=== PATIENT | female | born 1995 | race Caucasian/White ===

== ENCOUNTER 2021-10-22 00:08 | Day surgery (SDC) | payer OTHER, SELFPAY ==
[2021-10-16 11:35] VITALS: BMI 24.7
--- NOTE | 2021-10-16 11:41 | PC.NURSE ---
Report to the Outpatient Waiting Room, entrance under the green pavilion located off [facility], at time 0600 on date 10/22/21. OR Time: 0730. - You and your visitor will be asked a series of questions to screen for COVID 19 for your protection. - Only one visitor is allowed at this time. - The patient visitor is requested to leave or wait in car when not with patient. - A mask is required within the hospital. Patients may have clear liquids (water, carbonated beverages, clear teas, apple juice) until 3 hours prior to surgery with a maximum of 20 ounces. - No food from midnight until time of surgery Take the following medications with a SIP of water the morning of surgery: NONE Medications to discontinue per physician: VITAMINS Date to take last dose: 10/18/21 Please no make-up, nail czech, hairspray, perfume, deodorant, or body powder the day of surgery. No jewelry (including any body piercings) or valuables the day of surgery, leave them at home. Please take a shower or bath the night before, or the morning of, surgery with an antibacterial soap. Wear comfortable, loose fitting clothing. - Jewelry must be removed prior to entering the operating room. Rings and piercings that are not removed may be cut off. - The hospital will not accept responsibility for valuables. - Please leave all valuables, including medications, at home the day of surgery. If you are going home after surgery, a licensed school bus driver/mechanic must drive you home. - NO public transportation without another adult. - We recommend that an adult stay with you for 24 hours following discharge. - We also recommend that you do not drive, make important decision, drink alcoholic beverages, or take any drugs that were not prescribed by your health care provider for at least 24 hours after your discharge time. Follow any additional instructions given to you from your surgeon. If you or anyone in your household have experienced Covid symptoms in the past week, please notify your surgeon or the nurse liaison at the phone number below for possible testing. Telephone instructions given to PT - ACACIA MANCERA and asked if any additional questions and then verbalized understanding. Patient advised to call surgeon office or pre surgery nurse liaison [phone] if any additional questions.
--- NOTE | 2021-10-21 06:29 | P.HP_ITS ---
History of Present Illness History of Present Illness Consent: Risks, benefits, and alternatives have been discussed and questions answered. Patient agrees to proceed with procedure. Chief complaint: Nasal Septal Deviation Narrative: Randi Ward is a 26 yea headed external rhinoplasty 10 years ago still has deviation on 1 side would like it repairedale Review of Systems Review of Systems: All systems reviewed & are unremarkable except as noted in HPI and below Constitutional: Constitutional: Reports as per HPI and Reports no additional constitutional complaints PMFSH Social History Social History Smoking packs per day: 1 Smoking cigarettes per day: 20.0 Years smoked: 8 Smoking pack-years: 8.00 Smoking status: Former smoker Tobacco type: cigarettes and e-cigarettes/vaping Smoking end date: 06/11/21 Additional smoking assessment comments: QUIT CIGARETTES, NOW VAPING Alcohol intake: never Substance use: current Substance use type: marijuana Other substance usage details: EVERY FEW MONTHS Living arrangements: with family Spiritual care concerns: No Comments medical social family surgical history all within normal in all within normal limits Meds Home Medications and Allergies Home Medications Medication Instructions Recorded Confirmed Type multivitamin 1 tablet PO DAILY 10/16/21 10/16/21 History Allergies Allergy/AdvReac Type Severity Reaction Status Date / Time Penicillins Allergy Unknown Hives Verified 10/16/21 11:34 Exam Narrative: chest clear heart without murmurs nose septum deviated
--- NOTE | 2021-10-21 06:31 | P.HP_ITS ---
History of Present Illness History of Present Illness Consent: Risks, benefits, and alternatives have been discussed and questions answered. Patient agrees to proceed with procedure. Chief complaint: Nasal Septal Deviation Narrative: Randi Ward is a 26 year old female Review of Systems Review of Systems: All systems reviewed & are unremarkable except as noted in HPI and below Constitutional: Constitutional: Reports as per HPI and Reports no additional constitutional complaints PMFSH Social History Social History Smoking packs per day: 1 Smoking cigarettes per day: 20.0 Years smoked: 8 Smoking pack-years: 8.00 Smoking status: Former smoker Tobacco type: cigarettes and e-cigarettes/vaping Smoking end date: 06/11/21 Additional smoking assessment comments: QUIT CIGARETTES, NOW VAPING Alcohol intake: never Substance use: current Substance use type: marijuana Other substance usage details: EVERY FEW MONTHS Living arrangements: with family Spiritual care concerns: No Comments medical social family history all within normal limits unremarkable Meds Home Medications and Allergies Home Medications Medication Instructions Recorded Confirmed Type multivitamin 1 tablet PO DAILY 10/16/21 10/16/21 History Allergies Allergy/AdvReac Type Severity Reaction Status Date / Time Penicillins Allergy Unknown Hives Verified 10/16/21 11:34 Exam Narrative: chest clear heart without murmurs abdomen soft nose septum deviate d to the right with obstruction Assessment and Plan Assessment and plan (1) Nose septum deviation: Code(s): J34.2 - Deviated nasal septum Status: Acute Assessment and Plan: plan is to do a septoplasty Plan plan septal plasty Additional Plan plan is to do a septoplasty deviated nasal obstruction
[2021-10-22] VITALS (8 sets, daily range): BP systolic 106–129; BP diastolic 61–88; PULSE 63–105; RESP 16–18; TEMP 36.6–37.4; O2SAT 98–100
--- NOTE | 2021-10-22 06:18 | WPDHPUPDATE1 ---
History and Physical Update Update Date/Time: 10/22/21 06:18 History and Physical has been reviewed, including an updated exam of the patient. There are NO changes in the patient's condition. Risks, benefits, and alternatives have been discussed and questions answered. Patient agrees to proceed with procedure.
[2021-10-22] MEDS: ACETAMINOPHEN 500 MG TABLET 1000 MG PO (06:36)
[2021-10-22] MEDS: LACTATED RINGERS 1,000 ML 30 ML IV CONT (06:45)
--- NOTE | 2021-10-22 06:58 | P.PNAN_ITS ---
Anes - Initial Pre Proc Eval Procedure: Operation Date: 10/22/21 07:30 Proposed Procedures p Revision Septoplasty - Liu Mooney MD Date/Time: 10/22/21 06:58 Surgeon: Liu Mooney MD Pre Op Diagnosis: Nasal Septal Deviation Patient Data Age: 26 Gender: F Height: 1.6 m Weight: 63.5 kg Allergies Allergy/AdvReac Type Severity Reaction Status Date / Time Penicillins Allergy Unknown Hives Verified 10/16/21 11:34 Home Medications Medication Instructions Recorded Confirmed Type multivitamin 1 tablet PO DAILY 10/16/21 10/16/21 History Patient hx anesthesia problems: none Family hx anesthesia problems: none Results Review: All pre-operative results and documents have been reviewed as part of the pre- operative evaluation. [facility] Social History Social History Smoking packs per day: 1 Smoking cigarettes per day: 20.0 Years smoked: 8 Smoking pack-years: 8.00 Smoking status: Former smoker Tobacco type: cigarettes and e-cigarettes/vaping Smoking end date: 06/11/21 Additional smoking assessment comments: QUIT CIGARETTES, NOW VAPING Alcohol intake: never Substance use: current Substance use type: marijuana Other substance usage details: EVERY FEW MONTHS Living arrangements: with family Spiritual care concerns: No Anes - Eval Final PreProcedure Day of Procedure 10/22/21 06:58 Patient weight: normal Heart: regular rate and rhythm Lungs: clear to auscultation and normal air movement Airway: Mallampati scale class II Neurological: alert and oriented Last oral intake: >/= 8 hours ASA classification: II Emergent: no Anesthetic plan: proceed Anesthesia type and monitoring: general ETT Results Review: All pre-operative results and documents have been reviewed as part of the pre- operative evaluation. Informed Consent: The patient's anesthetic plan and its attendant risks and benefits were discussed with the patient/family/POA. Questions were solicited and answers provided to the satisfaction of the patient/family/POA.
[2021-10-22] MEDS: COCAINE HCL (*CRX) 4% TOP SOLN 4 ML VIAL 1 APPLIC TOPICAL (07:18)
[2021-10-22] MEDS: MIDAZOLAM HCL (*CRX) 2 MG/2 ML VIAL IV PUSH (07:36)
--- NOTE | 2021-10-22 08:01 | W.PM.PROC2 ---
Procedure Note - Detailed Date of Procedure 10/24/21 Pre-op Diagnosis Nasal Septal Deviation Post-op Diagnosis Same Procedure Performed Patient was prepped and draped in fashion general anesthesia the nose was packed with cotton the cottonoids impregnated with cocaine injected with xylocaine with adrenaline septum was deviated anteriorly on the right side a right hemitransection was made anterior tunnels elevated bony deviation was is deviated was divided and some of the caudal septum was removed incision was then closed with 4-0 chromic and a half a Manrique splint placed on each side patient awakened returned to recovery in good condition Surgeon Liu Mooney MD Anesthesia General Description of Procedure patient was prepped and draped fashion general anesthesia the nose packed with cocaine impregnated cottonoids injected xylocaine with adrenaline a right mark transfix incision was made anterior tunnels elevated the bony deviation was removed and the S an area of caudal septum was excised was then closed with 4-0 chromic and splints sutured in with 2-0 silks
[2021-10-22] MEDS: fentaNYL CITRATE INJ (*CRX) 100 MCG/2 ML VIAL 25 MCG IV PUSH (08:45)
[2021-10-22] MEDS: oxyCODONE HCL (*CRX) 5 MG TAB IR PO (09:19)
== END 2021-10-22 09:53 | disposition home or self-care (01) ==
PROVIDERS: PCP Physician Assistant; Visit Provider Otolaryngology
PROC: (CPT 30520; principal; 2021-10-22 07:30)
DX: J34.2 Deviated nasal septum (principal); F17.290 Nicotine dependence, other tobacco product, uncomplicated
CPT/HCPCS: 30520; A9270; J0330; J1100; J2001; J2250; J2405; J2704; J3010; J7120